=== PATIENT | female | born 1930 | race Caucasian/White ===

== ENCOUNTER → 2018-08-25 07:50 | Outpatient (CLI) | payer MEDICARE, BC ==
[2011-10-12 15:01] VITALS: BMI 19.1
[~2018-08-25 07:50] MED LIST: CARDIZEM60 MG PO; COMBIGAN OPHT DR5 ML EACH EYE; ELIQUIS2.5 MG PO; OS-CAL500 MG PO; SYNTHROID100 MCG PO; SYSTANE NIGHTT3.5 GM EACH EYE; XALATAN 0.0052.5 ML EACH EYE
== END | disposition home or self-care (01) ==
LOC: D.CT 08-24 14:00
DX: R10.9 Unspecified abdominal pain (principal)

== ENCOUNTER 2018-08-30 08:35 | Emergency (ER) | payer MEDICARE, BC ==
[~2018-08-30] VITALS: Ht 160 cm; Wt 5.9 kg
[2018-08-30 08:58] VITALS: Ht 160 cm; Wt 5.9 kg
[2018-08-30] MEDS ORDERED: CARDIZEM60 MG PO (09:01)
[2018-08-30] MEDS ORDERED: ELIQUIS2.5 MG PO (09:01)
[2018-08-30] MEDS ORDERED: OS-CAL500 MG PO (09:02)
[2018-08-30] MEDS ORDERED: SYNTHROID100 MCG PO (09:02)
[2018-08-30] MEDS ORDERED: COMBIGAN OPHT DR5 ML EACH EYE (09:03)
[2018-08-30] MEDS ORDERED: SYSTANE NIGHTT3.5 GM EACH EYE (09:03)
[2018-08-30] MEDS ORDERED: XALATAN 0.0052.5 ML EACH EYE (09:04)
[2018-08-30 09:41] LABS: HEMATOCRIT 42.9 % (36.0-48.0); HEMOGLOBIN 14.5 g/dL (12-16); LYMPHOCYTES 25.9 % (15-50); MCH 33.2 pg (26.0-34.0); MCHC 33.8 g/dL (31.0-37.0); MCV 98.2 fL (80.0-100.0); MONOCYTES 11.4 % (2-11); NEUTROPHILS 58.7 % (40-80); PLATELET COUNT 161 10x3/uL (130-400); RBC 4.37 10x6/uL (4.00-5.40); RDW 13.2 % (11.5-14.5); WBC 4.1 10x3/uL (4.8-10.8)
[2018-08-30 09:52] LABS: INR 1.03 (0.85-1.17); PROTIME 13.2 SECONDS (11.6-15.0)
[2018-08-30 10:13] LABS: ALBUMIN 3.5 g/dL (3.4-5.0); ALKALINE PHOSPHATASE 56 U/L (46-116); ALT (SGPT) 24 U/L (10-68); BILIRUBIN - TOTAL 0.37 mg/dL (0.2-1.3); CALC OSMOLALITY 279 mosm/kg (275-300); CARBON DIOXIDE 32.2 mmol/L (21.0-32.0); CHLORIDE - SERUM 102 mmol/L (98-107); CREATININE - SERUM 0.6 mg/dL (0.6-1.3); GLUCOSE 123 mg/dL (74-106); POTASSIUM - SERUM 4.2 mmol/L (3.5-5.1); PROTEIN - SERUM 7.4 g/dL (6.4-8.2); SODIUM 139 mmol/L (136-145); UREA NITROGEN 15 mg/dL (7-18); eGFR NON AFRICAN AMERICAN > 90 mL/min (90-120)
[2018-08-30 10:22] LABS: THYROID STIMULATING HORMONE 1.67 uIU/mL (0.36-3.74)
[2018-08-30 10:38] LABS: C-REACTIVE PROTEIN < 0.2 mg/dL (0.0-0.9)
[2018-08-30 10:44] LABS: ERYTHROCYTE SEDIMENTATION RATE 7 mm/hr (0-42)
[2018-08-30 12:58] VITALS: BP 156/86
== END 2018-08-30 12:59 | disposition home or self-care (01) ==
LOC: D.ER 08:35
PROVIDERS: Emergency Medicine
DX: H53.9 Unspecified visual disturbance (principal)

== ENCOUNTER → 2018-12-24 09:10 | Outpatient (CLI) | payer MEDICARE, BC | END | disposition home or self-care (01) | LOC: D.RAD 09:10 | DX: R13.10 Dysphagia, unspecified (principal) ==

== ENCOUNTER → 2019-05-10 14:14 | Outpatient (CLI) | payer MEDICARE, BC | END | disposition home or self-care (01) | LOC: D.HCCARDIO 14:00 | PROVIDERS: ATTEND Internal Medicine Cardiovascular Disease | DX: I34.0 Nonrheumatic mitral (valve) insufficiency (principal) ==

== ENCOUNTER 2019-07-26 15:42 | Emergency (ER) | payer MEDICARE, BC ==
[~2019-07-26] VITALS: Ht 160 cm; Wt 43.2 kg
[2019-07-26 16:09] VITALS: Ht 160 cm; Wt 43.2 kg
[2019-07-26 16:40] LABS: BASOPHILS 0.6 % (0-2); EOSINOPHILS 1.8 % (0-7); HEMOGLOBIN 13.9 g/dL (12-16); IMMATURE GRANULOCYTES 0.1 % (0-5); LYMPHOCYTES 16.9 % (15-50); MCH 32.3 pg (26.0-34.0); MCHC 33.9 g/dL (31.0-37.0); MCV 95.3 fL (80.0-100.0); MEAN PLATELET VOLUME 10.1 fL (7.4-10.4); MONOCYTES 8.6 % (2-11); PLATELET COUNT 159 10x3/uL (130-400); RDW 13.6 % (11.5-14.5); WBC 6.9 10x3/uL (4.8-10.8)
[2019-07-26 17:01] LABS: ALBUMIN 3.9 g/dL (3.4-5.0); BILIRUBIN - TOTAL 0.62 mg/dL (0.2-1.3); CALCIUM 8.9 mg/dL (8.5-10.1); CARBON DIOXIDE 33.4 mmol/L (21.0-32.0); CREATININE - SERUM 0.9 mg/dL (0.6-1.3); POTASSIUM - SERUM 4.4 mmol/L (3.5-5.1); PROTEIN - SERUM 7.8 g/dL (6.4-8.2)
[2019-07-26 18:20] LABS: APPEARANCE HAZY (CLEAR); BILIRUBIN NEGATIVE (NEGATIVE); COLOR YELLOW (YELLOW); GLUCOSE NEGATIVE (NEGATIVE); KETONE MODERATE mg/dL (NEGATIVE); NITRITE NEGATIVE (NEGATIVE); PROTEIN TRACE mg/dL (NEGATIVE); RED CELLS - URINE 25-50 /hpf (0-5); SPECIFIC GRAVITY 1.015 (1.005-1.020); UROBILINOGEN NORMAL (NORMAL); WHITE CELLS - URINE 0-5 /hpf (NEGATIVE)
[2019-07-26 18:21] LABS: BACTERIA FEW /hpf (NEGATIVE); EPITHELIAL CELLS OCC /hpf (0-5)
[2019-07-26] MEDS ORDERED: PROTONIX40 MG PO (19:21)
[2019-07-26 19:33] VITALS: BP 165/75
== END 2019-07-26 19:33 | disposition home or self-care (01) ==
LOC: D.ER 15:42
PROVIDERS: Family Medicine
DX: R10.9 Unspecified abdominal pain (principal); R31.9 Hematuria, unspecified; K29.70 Gastritis, unspecified, without bleeding; J44.9 Chronic obstructive pulmonary disease, unspecified